=== PATIENT | male | born 1970 | race Caucasian/White ===

== ENCOUNTER 2020-11-14 10:34 | Emergency (ER) | payer OTHER ==
[~2020-11-14 10:34] MED LIST: Famotidine 20 MG/2 ML SDV IVPUSH ONE
[2020-11-14] MEDS ORDERED: diphenhydrAMINE 50 MG/ML SDV IVPUSH ONE (10:35)
[2020-11-14] MEDS ORDERED: Dexamethasone 4 MG/ML SDV IVPUSH ONE (10:35)
--- NOTE | 2020-11-14 10:38 | EDM.PDOC ---
ED HPI GENERAL MEDICAL PROBLEM - General Chief Complaint: Allergic Reaction Stated Complaint: [facility] Time Seen by Provider: 11/14/20 10:36 Source of Information: Reports: Patient, EMS. Denies: Old Records History Limitations: Reports: Other (no old records) - History of Present Illness INITIAL COMMENTS - FREE TEXT/NARRATIVE: 50 yo male was out doing yard work today and got stung twice by bees. He got flushed and didn't feel well and went into his house and passed out. His called EMS. First responders gave Epi 0.5 and later paramedics gave IV Benedryl 50 mg and some IV fluids. By the time paramedics arrived he was already improved with no hives, but flushing. The flushing is less upon ER arrival. Vitals stable per paramedics. No pHx of bee sting allergy. Onset: Today, Sudden Onset Date: 11/14/20 Duration: Minutes:, Improving Location: Reports: Generalized Quality: Reports: Other (no pain, except with the initial stings) Severity: Severe Improves with: Reports: Medication Worsens with: Reports: Other (stings) Context: Reports: Other (bee stings) Associated Symptoms: Reports: Syncope, Weakness, Other (flushing). Denies: Shortness of Breath Treatments BREAD ROOM HAND: Reports: Other (see below) (See HPI) - Related Data Allergies Allergy/AdvReac Type Severity Reaction Status Date / Time No Known Allergies Allergy Verified 11/14/20 10:42 Home Meds: Home Meds EPINEPHrine [Epipen 2-Benny] 0.3 mg IJ ASDIRECTED PRN #1 ml 11/14/20 [Rx] ED ROS ALLERGIC REACTION - Review of Systems Review Of Systems: See Below Constitutional: Reports: Weakness HEENT: Reports: No Symptoms Respiratory: Reports: No Symptoms Cardiovascular: Reports: Lightheadedness GI/Abdominal: Reports: No Symptoms : Reports: No Symptoms Musculoskeletal: Reports: No Symptoms Skin: Reports: Erythema. Denies: Rash Neurological: Reports: No Symptoms ED EXAM GENERAL NO PERIP PULSE - Physical Exam Exam: See Below Exam Limited By: No Limitations General Appearance: Alert, WD/WN, No Apparent Distress Eye Exam: Bilateral Eye: Normal Inspection Ears: Normal External Exam, Normal Canal, Hearing Grossly Normal Nose: Normal Inspection, No Blood Throat/Mouth: Normal Inspection, Normal Lips, Normal Oropharynx, Normal Voice, No Airway Compromise Head: Atraumatic, Normocephalic Neck: Normal Inspection Respiratory/Chest: No Respiratory Distress, Lungs Clear, Normal Breath Sounds, No Accessory Muscle Use Cardiovascular: Regular Rate, Rhythm, No Edema GI/Abdominal: Normal Bowel Sounds, Soft, Non-Tender, No Distention Extremities: Normal Inspection Neurological: Alert, Oriented, CN II-XII Intact, Normal Cognition, No Motor/Sensory Deficits Psychiatric: Normal Affect, Normal Mood Skin Exam: Warm, Dry, Intact, No Rash, Erythema Course - Vital Signs Last Recorded V/S: Last Vital Signs Temp 36.6 C 11/14/20 10:48 Pulse 62 11/14/20 10:48 Resp 19 11/14/20 10:48 BP 116/65 11/14/20 10:48 Pulse Ox 99 11/14/20 10:48 - Orders/Labs/Meds Meds: Medications Discontinued Medications Generic Name Dose Route Start Last Admin Trade Name Freq PRN Reason Stop Dose Admin Dexamethasone 4 mg 11/14/20 10:35 11/14/20 10:54 Dexamethasone 4 Mg/Ml Sdv IVPUSH 11/14/20 10:36 4 mg ONETIME ONE Administration Diphenhydramine HCl 50 mg 11/14/20 10:35 11/14/20 10:54 Diphenhydramine 50 Mg/Ml Sdv IVPUSH 11/14/20 10:36 50 mg ONETIME ONE Administration Famotidine 20 mg 11/14/20 10:34 11/14/20 10:54 Famotidine 20 Mg/2 Ml Sdv IVPUSH 11/14/20 10:35 20 mg ONETIME ONE Administration - Re-Assessments/Exams Free Text/Narrative Re-Assessment/Exam: 11/14/20 11:35 All flushing now gone. Family here. Will discharge with EPI PEN. Departure - Departure Time of Disposition: 11:50 Disposition: Home, Self-Care 01 Condition: Good Clinical Impression: Anaphylactic reaction Qualifiers: Encounter type: initial encounter Qualified Code(s): T78.2XXA - Anaphylactic shock, unspecified, initial encounter Bee sting reaction Qualifiers: Encounter type: initial encounter Injury intent: accidental or unintentional Qualified Code(s): T63.441A - Toxic effect of venom of bees, accidental (unintentional), initial encounter - Discharge Information *PRESCRIPTION DRUG MONITORING PROGRAM REVIEWED*: Not Applicable *COPY OF PRESCRIPTION DRUG MONITORING REPORT IN PATIENT SEBASTIEN: Not Applicable Prescriptions: EPINEPHrine [Epipen 2-Benny] 0.3 mg IJ ASDIRECTED PRN #1 ml PRN Reason: Allergies Instructions: Anaphylactic Reaction, Adult, [id number] Referrals: PCP,None [Primary Care Provider] - Forms: ED Department Discharge Additional Instructions: Use Epi Pen as needed for future severe allergic reactions. Give diphenhydramine today 50 mg every 4 hrs as needed for any ongoing allergy symptoms as well as in the future. No driving when on diphenhydramine. Return as needed. Sepsis Event Note (ED) - Focused Exam Vital Signs: Vital Signs Temp Pulse Resp BP Pulse Ox 11/14/20 10:48 36.6 C 62 19 116/65 99 11/14/20 10:37 36.6 C 62 19 116/65 99
== END 2020-11-14 12:32 | disposition home or self-care (01) ==
LOC: JP.ED 10:34
DX: T63.441A Toxic effect of venom of bees, accidental (unintentional), initial encounter (principal); T78.2XXA Anaphylactic shock, unspecified, initial encounter
CPT/HCPCS: 96374; 96375; 99284; J1100; J1200; J3490